=== PATIENT | male | born 1960 | race Caucasian/White ===

== ENCOUNTER 2024-09-29 13:42 | Emergency (ER) | payer BC, SELFPAY ==
[2024-09-29 13:46] VITALS: BP 170/104
[2024-09-29 14:19] LABS: % Eosinophils 0.8 % (0-6); % Immature Granulocytes 0.3 % (0-0.5); % Lymphocytes 19.9 % (20.5-51.1); % Monocytes 8.7 % (1.7-9.3); % Neutrophils 69.3 % (42.2-75.2); Absolute Basophils 0.1 10^3/uL (0-0.2); Absolute Eosinophils 0.1 10^3/uL (0-0.7); Absolute Lymphocytes 2.3 10^3/uL (1.2-3.4); Absolute Neutrophils 8.1 10^3/uL (1.4-6.5); Hematocrit 47.6 % (39.0-52.0); Hemoglobin 16.4 g/dL (13.0-18.0); Mean Corp Hgb Conc. 34.5 g/dL (33.0-37.0); Mean Corpuscular Hgb 30.7 pg (27.0-31.0); Mean Platelet Volume 9.8 fL (7.4-10.4); Nucleated Red Blood Cells % 0 % (-); Platelet Count 226 10^3/uL (130-400); Red Blood Cell Count 5.35 10^6/uL (4.70-6.10); Red Cell Dist. Width 12.6 % (11.5-14.5); White Blood Cell Count 11.6 10^3/uL (4.8-10.8)
[2024-09-29 15:09] LABS: ALT (SGPT) 20 U/L (0-50); AST (SGOT) 26 U/L (17-59); Albumin 5.2 g/dl (3.5-5.0); Alkaline Phosphatase 62 U/L (38-126); Blood Urea Nitrogen 27 mg/dl (9-20); Calcium 9.6 mg/dl (8.4-10.2); Carbon Dioxide 25 mmol/L (22-30); Chloride 103 mmol/L (98-107); Glucose 129 mg/dl (70-99); Potassium 3.8 mmol/L (3.5-5.1); Sodium 140 mmol/L (135-145); Total Bilirubin 1.5 mg/dl (0.2-1.3); Total Protein 8.1 g/dl (6.3-8.2); eGFR > 60.00
[2024-09-29 15:28] LABS: Lipase 173 U/L (23-300)
--- NOTE | 2024-09-29 16:58 | ED.GENMED ---
History of Present Illness
General
Chief Complaint: Abdominal Pain
Source: patient
Exam Limitations: none
Time Seen by Provider: 09/29/24 16:36
History of Present Illness
History of Present Illness:
64-year-old male presents complaining of right upper quadrant abdominal pain onset yesterday. There was associated nausea vomiting and diarrhea. This started after having some cupcakes. He still has some residual pain today and presented here for
evaluation. He states he has a history of gallbladder problems feels like a gallbladder attack to him. He had sweats and chills with this but no measurable fever. No other complaint
Phy Exam
Physical Exam
Physical Exam:
General: Well-appearing male no acute respiratory distress
HEENT: Normocephalic atraumatic heart: Regular rate and rhythm
Lungs: Clear no wheeze
Abdomen is soft tender to the right upper quadrant epigastric region no guarding rebound
Extremities: No cyanosis
Course
Orders/Labs/Results
Orders:
Orders
09/29/24 13:57
Complete Blood Count/With Diff Urgent
Comprehensive Metabolic Panel Urgent
Lipase Urgent
09/29/24 16:45
US Abdomen Complete/Upper Urgent
Comment:
Reason For Exam: RUQ pain
09/29/24 18:13
Acetaminophen [Tylenol] 650 mg .ROUTE .STK-MED ONE
09/29/24 18:14
Acetaminophen [Tylenol] 650 mg PO NOW STA
Abnormal Lab Results
09/29/24
13:57
WBC 11.6 H 10^3/uL
(4.8-10.8)
Absolute Neuts (auto) 8.1 H 10^3/uL
(1.4-6.5)
Absolute Monos (auto) 1.0 H 10^3/uL
(0.1-0.6)
Lymphocytes % 19.9 L %
(20.5-51.1)
BUN 27 H mg/dl
(9-20)
Glucose 129 H mg/dl
(70-99)
Total Bilirubin 1.5 H mg/dl
(0.2-1.3)
Albumin 5.2 H g/dl
(3.5-5.0)
09/29/24 13:57
09/29/24 13:57
Vital Signs
Initial and Last Documented VS:
Initial Vital Signs
Temp Pulse Resp BP Pulse Ox
98.4 F 101 18 170/104 100
09/29/24 13:46 09/29/24 13:46 09/29/24 13:46 09/29/24 13:46 09/29/24 13:46
Last Documented Vital Signs
Temp Pulse Resp BP Pulse Ox
98.2 F 74 18 151/87 100
09/29/24 17:23 09/29/24 17:23 09/29/24 17:23 09/29/24 17:23 09/29/24 13:46
MDM/Problems Addressed
Differential Diagnosis Includes:
Intermittent right upper abdominal pain. Consider gastritis versus biliary colic versus viral illness. Will check labs ultrasound abdomen pending overall nontoxic otherwise
*Critical Care Note
Total Time (30-74mins, 75-104mins- exclusive of procedures): Not Applicable
Update Note
Update Note:
Ultrasound negative for acute finding. Patient's symptoms could have been related to biliary colic but more likely related to viral illness given the vomiting and diarrhea. Symptoms are improving with time. Benign exam otherwise. Stable for
discharge
ED Attending Note
-
Portions of this chart may have been created with voice recognition software.� Occasional wrong word or��sound alike� substitutions may have occurred due to the inherent limitations of voice recognition software.
Discharge Plan
Departure
Patient Disposition: Home (Routine Discharge)
Date of Disposition: 09/29/24
Time of Disposition: 18:57
Patient with high blood pressure during this ER visit?: No
Discharge Problem:
Abdominal pain
Instructions: Nausea and Vomiting, Adult (DC), Abdominal Pain
Prescriptions:
No Action
tamsulosin [Flomax] 0.4 mg capsule
0.4 mg PO DAILY Qty: 10 0RF
Activity Restrictions/Additional Instructions:
Return here for worsening symptoms. Drink plenty clear liquids. Start with a bland diet. Return if needed otherwise
Interventions
Interventions:
*Risk Screen - Suicide Last Done: 09/29/24 13:46
*General Assessment Last Done: 09/29/24 13:46
*Neglect/Abuse Screening Last Done: 09/29/24 13:46
*ED- Fall Risk Assessment Last Done: 09/29/24 17:21
*ED COVID-19 Vaccine History Last Done: 09/29/24 17:21
EM-[facility] Assessment Last Done: 09/29/24 17:22
Discharge Date and Time
Print Language: GREENLANDIC
[2024-09-29 17:21] VITALS: BMI 26.3
[2024-09-29 17:23] VITALS: BP 151/87
[2024-09-29] MEDS: TYLENOL 650 MG PO (18:14)
[2024-09-29 19:03] VITALS: BP 155/92
== END 2024-09-29 19:11 | disposition home or self-care (01) ==
LOC: EMR 13:42
PROVIDERS: Emergency Medicine; EMERGENCY PHYSICIAN Emergency Medicine; FAMILY PHYSICIAN Internal Medicine
DX: R10.11 Right upper quadrant pain (principal)
CPT/HCPCS: 99284; 76700; 80053; 83690; 85025